=== PATIENT | male | born 1950 | race Caucasian/White ===

== ENCOUNTER 2021-12-18 09:27 | Emergency (ER) | payer MEDICARE, SELFPAY ==
--- NOTE | ~2021-12-18 | XR_ITS ---
EXAMINATION: XR ribs LT 2V INDICATION: Chest pain after fall TECHNIQUE: Four views of the left ribs were obtained. COMPARISON: None. FINDINGS: There appears to be a nondisplaced fracture at the anterolateral aspect of the left fifth r ib. The visualized portions of the left hemithorax are normal. No pleural effusion or pneumothorax. T he heart size is normal. There are surgical changes in the left upper quadrant. Punctate left upper q uadrant calcifications likely reflect healed granulomatous disease of the spleen. There are lytic les ions in proximal humerus measuring up to 9 mm. IMPRESSION: 1. Likely nondisplaced fracture at the anterolateral aspect of the left fifth rib. 2. Lytic lesions in the proximal humerus concerning for multiple myeloma or metastatic disease in the appropriate clinical history. Recommend further evaluation with laboratory testing. Reviewed, dictated and finalized at location A. IMPRESSION: 1. Likely nondisplaced fracture at the anterolateral aspect of the left fifth r ib. 2. Lytic lesions in the proximal humerus concerning for multiple myeloma or met astatic disease in the appropriate clinical history. Recommend further evaluati on with laboratory testing.
[2021-12-18 09:50] VITALS: BP 117/62; PULSE 67; RESP 20; TEMP 37.1; O2SAT 99
--- NOTE | 2021-12-18 10:49 | ED.FALL ---
HPI - Fall General Chief Complaint: Fall Stated Complaint: Fall Injury/Rib Pain Time Seen by Provider: 12/18/21 10:49 Source: patient, RN notes reviewed and old records reviewed Mode of arrival: ambulatory Limitations: no limitations History of Present Illness HPI Narrative: 71-year-old male who presents to the [facility] care with complaints of fall 2 weeks ago hitting his left rib area with continued pain to his left lateral rib region. Patient states when he fell he tucked his left shoulder to protect his shoulder since he had surgery in August on it and he was trying to protect it and has no pain at present to his left shoulder.. Patient reports that he does not feel short of breath but has some pain in left rib are with activity and certain movement. Patient reports that he has taken some left over Oxycodone that he had from when he had shoulder surgery that he has taken for his pain.Patient reports that he didn't have dizziness prior to fall lost his balance, denies hitting head. MD complaint: fall Onset (ago): week(s) (2) Fall from: standing Location of injury: other (left ribs) Severity scale (1-10): 2 Associated symptoms (after fall): other (pain left rib area) Related Data Home Medications Medication Instructions Recorded Confirmed bupropion HCl 150 mg 24 hr tablet, 150 mg PO DAILY 12/18/21 12/18/21 extended release carvedilol 12.5 mg tablet 1 tablet PO DAILY 12/18/21 12/18/21 fluticasone propionate 50 2 spray intranasal DAILY 12/18/21 12/18/21 mcg/actuation nasal spray,suspension lisinopril 40 mg tablet 40 mg PO DAILY 12/18/21 12/18/21 omeprazole 40 mg capsule,delayed 40 mg PO DAILY 12/18/21 12/18/21 release zolpidem 5 mg tablet 5 mg PO DAILY 12/18/21 12/18/21 Allergies Allergy/AdvReac Type Severity Reaction Status Date / Time morphine Allergy Mild Hives Verified 12/18/21 10:03 Review of Systems Review of Systems: CONSTITUTIONAL: Denies fever, chills, or sweats. EYES: Denies visual changes, redness, or discharge. ENT: Denies rhinorrhea, congestion, sore throat, or otalgia. CARDIOVASCULAR: Denies chest pain, palpitations, or edema. RESPIRATORY: Denies cough or dyspnea. positive for left rib pain with no dyspnea reported GASTROINTESTINAL: Denies abdominal pain, nausea, vomiting, or diarrhea. GENITOURINARY: Denies dysuria or hematuria. SKIN: Denies rash or itching. MUSCULOSKELETAL: Denies back pain, joint pain, or myalgia. NEUROLOGIC: Denies headache, numbness, or weakness. PSYCHIATRIC: Positive for history of anxiety or depression. All systems reviewed & are unremarkable except as noted in HPI and below PMFSH Past Medical History Medical History (Updated 12/19/21 @ 18:13 by Carli Pastrana NP) ADHD (attention deficit hyperactivity disorder) Anxiety and depression Chronic rhinitis GERD (gastroesophageal reflux disease) Hypertension Spinal stenosis Surgical History Surgical History (Updated 12/19/21 @ 18:15 by Carli Pastrana NP) History of knee replacement, total bilateral Hx of appendectomy Hx of shoulder surgery left, rotator cuff repair S/P gastroplasty Social History Social History (Updated 12/19/21 @ 18:18 by Carli Pastrana NP) Living arrangements: with family Gender identity (if verbalized by the patient): Male Comments At time of signature, agree with nursing past medical, surgical, social and family history. There is no relevant family history pertinent to the presenting complaint Exam Narrative: GENERAL: Well-appearing, well-nourished, and in no acute distress. HEAD: Normocephalic, atraumatic. EYES: PERRLA and EOMI. ENT: Nares clear, no rhinorrhea or epistaxis. Mucous membranes moist.TM's normal with good light reflex, throat pink with no lesions or exudates NECK: Supple. no lymphadenopathy CHEST: Clear to auscultation. No respiratory distress. denies any wheezing or any dyspnea, pain to left rib area from fall about 2 weeks ago, increases with cough, sneezing and
== END 2021-12-18 11:13 | disposition home or self-care (01) ==
PROVIDERS: Emergency Provider Registered Nurse; PCP Internal Medicine Geriatric Medicine
DX: S22.32XA Fracture of one rib, left side, initial encounter for closed fracture (principal); W19.XXXA Unspecified fall, initial encounter; M89.9 Disorder of bone, unspecified; K21.9 Gastro-esophageal reflux disease without esophagitis; I10 Essential (primary) hypertension; M48.00 Spinal stenosis, site unspecified; F41.9 Anxiety disorder, unspecified; F32.A Depression, unspecified; Z96.653 Presence of artificial knee joint, bilateral
CPT/HCPCS: 71100; 99213; G0463